=== PATIENT | female | born 1985 | race Caucasian/White ===

== ENCOUNTER 2019-09-02 05:10 | Inpatient (IN) | payer OTHER ==
[2019-09-02] MEDS: ELECTROLYTE-148 SOLN 1,000 ML IV SCH (06:00)
[2019-09-02 06:09] VITALS: BMI 27.7
[2019-09-02] MEDS ORDERED: ELECTROLYTE-148 SOLN 500 ML IV ONE (07:13)
[2019-09-02] MEDS ORDERED: CITRIC ACID/SODIUM CITRATE 30 ML UNIT-DOSE CUP PO ONE (07:15)
[2019-09-02] MEDS ORDERED: morphine SULFATE/PF 0.5 MG/ML (2cc Syringe - QUVA) ONE ×2 (07:18→07:37)
--- NOTE | 2019-09-02 07:18 | HP ---
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: Alzheimer's, CVA, Dementia, Migraine, Multiple Sclerosis, Peripheral Neuropathy, Parkinson's, Seizure, Syncope, TIA, Vertigo, Other Cardiovascular: No: AFIB, Aneurysm, Aortic Insufficiency, Aortic Stenosis, CAD, CHF, Deep Vein Thrombosis, HTN, Hyperlipdemia, ND, Mitral Insufficiency, Mitral Stenosis, Murmur, Pulmonary Hypertension, Other Pulmonary: No: Asthma, Bronchitis, Cancer, COPD, O2 Dependent, Pneumonia, Previously Intubated, Pulmonary Embolus, Pulmonary Fibrosis, Sleep Apnea, Other Gastrointestinal: No: Ascites, Cancer, Constipation, Crohn's Disease, Diverticulitis, Diverticulosis, Esophageal Varices, Gastritis, GERD, GI Bleed, Hemorrhoids, Hiatal Hernia, Inflamatory Bowel Disease, Irritable Bowel Disease, Pancreatitis, Peptic Ulcer Disease, Ulcerative Colitis, Other Hepatobiliary: No: Cirrhosis, Cholelithiasis, Cholecystitis, Choledocholithiasis, Hepatitis A, Hepatitis B, Hepatitis C, Other Renal/: No: Renal Failure, Renal Inusuff, BPH, Cancer, Hematuria, Hemodialysis, Neurogenic Bladder, Renal Calculi, UTI, Other Reproductive: No: Ectopic , Endometriosis, Fibroids, PID, Polycystic Ovary Syndrome, Postmenopausal, Other ...: 3 ...Para: 1 ...Term: 0 ...: 1 ...Spon : 1 ...Induced : 0 ...Living Children: 1 ...Multiple Gestation: 0 ...LMP: 12/11/18 ... Weeks Gestation by Dates: 38.0 ...EDC by Dates: 09/16/19 Heme/Onc: No: Anemia, B12 Deficiency, Bleeding Disorder, Cancer, Current Chemotherapy, Current Radiation Therapy, Hemochromatosis, Hypercoaguable State, Myeloproliferative Synd, Sickle Cell Disease, Sickle Cell Trait, Thrombocytopenia, Other Infectious Disease: No: AIDS, C-Diff, Herpes Zoster, HIV, MRSA, STD's, Tuberculosis, VREF, Other Psych: No: Addictions, Anxiety, Bipolar, Depression, Panic, Psychosis, Schizophrenia, Other Musculoskeletal: No: Bursitis, Chronic low back pain, Hemiparesis, Hemiplegia, Osteoarthritis, Paraplegia, Other Rheumatology: No: Fibromyalgia, Gout, Lupus, Rheumatoid Arthritis, Sarcoidosis, Vasculitis, Other ENT: No: Allergic Rhinitis, Sinusitis, Other Endocrine: No: Aniket's Disease, Fer's Disease, Diabetes Insipidus, Diabetes Mellitus, Hyperparathyroidism, Hyperthyroidism, Hypothyroidism, Osteopenia, SIADH, Other Dermatology: No: Basal Cell, Cellulitis, Eczema, Melanoma, Psoriasis, Squamous Cell, Other - Past Surgical History Past Surgical History: Yes: Hx Myomectomy: No Hx Transabdominal Cerclage: No - Advance Directives Advance Directives: Yes: Living Will - Smoking History Smoking history: Never smoked Have you smoked in the past 12 months: No - Alcohol/Substance Use Hx Alcohol Use: No History of Substance Use: reports: None - Social History Usual Living Arrangement: Yes: With Significant Other Do you think of yourself as: Straight/Heterosexual ADL: Independent History of Recent Travel: No Home Medications - Allergies Allergies/Adverse Reactions: Allergies Allergy/AdvReac Type Severity Reaction Status Date / Time No Known Allergies Allergy Verified 09/02/19 07:13 - Home Medications Home Medications: Ambulatory Orders Aspirin [ASA -] 81 mg PO DAILY 09/02/19 Pnv No.95/Ferrous Fum/Folic AC [ Vitamin Tablet] 1 each PO DAILY 09/02/19 Family Medical History Family History: Denies Review of Systems - Review of Systems Constitutional: reports: No Symptoms Eyes: reports: No Symptoms HENT: reports: No Symptoms Neck: reports: No Symptoms Cardiovascular: reports: No Symptoms Respiratory: reports: No Symptoms Gastrointestinal: reports: No Symptoms Genitourinary: reports: No Symptoms Breasts: reports: No Symptoms Reported Musculoskeletal: reports: No Symptoms Integumentary: reports: No Symptoms Neurological: reports: No Symptoms Endocrine: reports: No Symptoms Hematology/Lymphatic: reports: No Symptoms Psychiatric: reports: No Symptoms Physical Exam - Maternity Vital Signs: Vital Signs Temperature 98.4 F 09/02/19 05:25 Pulse Rate 67 09/02/19 05:25 Respiratory Rate 18 09/02/19 05:25 Blood Pressure 146/93 09/02/19 05:25 O2 Sat by Pulse Oximetry (%) Constitutional: Yes: Well Nourished, No Distress, Calm Eyes: Yes: WNL, Conjunctiva Clear, EOM Intact HENT: Yes: WNL, Atraumatic, Normocephalic Neck: Yes: WNL, Supple, Trachea Midline Cardiovascular: Yes: WNL, Regular Rate and Rhythm Breast(s): Yes: WNL - Abdominal Exam/OB Fundal Height: 38 Number of Fetuses: Single Presentation: Vertex Contractions: Yes Regularity: Irregular Intensity: Mild Monitor Mode: External Heart Rate Location: LLQ Accelerations: Uniform Decelerations: None - Vaginal Exam/OB Vaginal Bleeding: No Speculum Exam: No Dilatation (cm): 1 Effacement (%): 70 Amniotic Membrane Status: Intact Hemorrhage Risk Assessment - Risk Factors Medium Risk Factors: Yes: Prior , uterine surgery,or multiple laparotomies Risk Score: 1 Risk Level: Medium Risk Assessment/Plan for repeat lt c s , pre eclampsia, chronic htn
[2019-09-02] MEDS ORDERED: PROPOFOL 20 ML ONE (07:38)
[2019-09-02] MEDS ORDERED: SUCCINYLCHOLINE CHLORIDE 200 MG/10 ML SYRINGE ONE (07:38)
[2019-09-02] MEDS ORDERED: ePHEDrine SULFATE 50 MG/1 ML AMPULE ONE (07:49)
[2019-09-02] MEDS ORDERED: OXYTOCIN 20 UNITS in 0.9% NS 20 UNIT/1,000 ML INFUS.BAG IV ONE (08:30)
[2019-09-02] MEDS: OXYTOCIN 20 UNITS in 0.9% NS 20 UNIT/1,000 ML INFUS.BAG IV SCH ×3 (08:30→23:29)
[2019-09-02] MEDS ORDERED: ACETAMINOPHEN 325 MG TABLET (FP) PO PRN (08:49)
[2019-09-02] MEDS ORDERED: IBUPROFEN 600 MG TABLET (FP) PO PRN (08:49)
[2019-09-02] MEDS ORDERED: SIMETHICONE 80 MG TAB.CHEW (FP) PO PRN (08:49)
[2019-09-02] MEDS ORDERED: IBUPROFEN 800 MG/8 ML IJ IVPB PRN (08:49)
[2019-09-02] MEDS ORDERED: oxyCODONE HCL 5 MG TABLET PO PRN ×2 (08:49)
[2019-09-02] MEDS ORDERED: SENNOSIDES/DOCUSATE COMBO (SENNA PLUS) TABLET (UD) PO PRN (08:49)
[2019-09-02] MEDS ORDERED: METHYLERGONOVINE MALEATE 0.2 MG/1 ML AMP IM PRN (08:49)
[2019-09-02] MEDS ORDERED: morphine SULFATE/PF 0.5 MG/ML (2cc Syringe - QUVA) EP ONE (08:54)
[2019-09-02] MEDS: PRENATAL VITAMINS W/ FOLIC ACID TABLET (FP) PO SCH (10:57)
[2019-09-02] MEDS: ONDANSETRON 4 MG/2 ML VIAL IVPUSH PRN ×2 (11:16→16:47)
--- NOTE | 2019-09-02 19:37 | OP ---
Operative Note - Note: Operative Date: 09/02/19 Pre-Operative Diagnosis: chronic htn and mild pre eclampsia Operation: repeat lt c s Post-Operative Diagnosis: Same as Pre-op Surgeon: Nakul Silver Photo Printer: Edvin Stafford Anesthesiologist/SUPERVISOR LIQUID YEAST: Marli May MD Anesthesia: Spinal Estimated Blood Loss (mls): 800 (pt on baby aspirin, slightly more vag bleeding, ) Operative Report Dictated: Yes
[2019-09-03 08:25] LABS: BASO % 0.4 % (0-2.0); EOS % 0.6 % (0-4.5); HEMATOCRIT 22.1 % (32.4-45.2); HEMOGLOBIN 7.4 GM/dL (10.7-15.3); LYMPH % 15.3 % (8-40); MCH 31.2 pg (25.7-33.7); MCHC 33.4 g/dl (32.0-36.0); MEAN CELL VOLUME 93.6 fl (80-96); MEAN PLT VOLUME 9.4 fl (7.5-11.1); MONO % 6.7 % (3.8-10.2); PLATELET COUNT 269 K/MM3 (134-434); RBC 2.36 M/mm3 (3.60-5.2); RDW 13.4 % (11.6-15.6); WHITE BLOOD COUNT 14.4 K/mm3 (4.0-10.0)
[2019-09-03] MEDS ORDERED: BISACODYL 10 MG SUPP.RECT RC PRN (08:49)
[2019-09-03] MEDS: PRENATAL VITAMINS W/ FOLIC ACID TABLET (FP) PO SCH (09:34)
--- NOTE | 2019-09-03 09:37 | PN ---
Post Progress Note Post Day: 1 Type of Delivery: Repeat C/S Vital Signs: Vital Signs Temperature 98.5 F 09/03/19 06:00 Pulse Rate 61 09/03/19 02:00 Respiratory Rate 18 09/03/19 06:00 Blood Pressure 117/57 L 09/03/19 06:00 O2 Sat by Pulse Oximetry (%) 98 09/02/19 09:30 Breast Exam: Yes: Soft Uterus: Yes: Fundus Firm, Fundus below umbilicus, Non-tender Incision: Yes: Dressing dry and intact, Sutures intact Abdomen/GI: Yes: Abdomen soft, Abdominal Distention, Passing flatus, Tolerating PO Lochia: Yes: Serosa Lochia, amount: Small Extremities: Yes: Calves non-tender Perineum: Yes: Intact Activity: Ambulating (anemia, but asymptomatic, will observe with iron pills ) - Labs Labs: CBC WBC 14.4 K/mm3 (4.0-10.0) H 09/03/19 07:43 RBC 2.36 M/mm3 (3.60-5.2) L 09/03/19 07:43 Hgb 7.4 GM/dL (10.7-15.3) L 09/03/19 07:43 Hct 22.1 % (32.4-45.2) L D 09/03/19 07:43 MCV 93.6 fl (80-96) 09/03/19 07:43 MCH 31.2 pg (25.7-33.7) 09/03/19 07:43 MCHC 33.4 g/dl (32.0-36.0) 09/03/19 07:43 RDW 13.4 % (11.6-15.6) 09/03/19 07:43 Plt Count 269 K/MM3 (134-434) 09/03/19 07:43 MPV 9.4 fl (7.5-11.1) 09/03/19 07:43 Absolute Neuts (auto) 11.1 K/mm3 (1.5-8.0) H 09/03/19 07:43 Neutrophils % 77.0 % (42.8-82.8) 09/03/19 07:43 Lymphocytes % 15.3 % (8-40) D 09/03/19 07:43 Monocytes % 6.7 % (3.8-10.2) 09/03/19 07:43 Eosinophils % 0.6 % (0-4.5) 09/03/19 07:43 Basophils % 0.4 % (0-2.0) 09/03/19 07:43 Nucleated RBC % 0 % (0-0) 09/03/19 07:43
--- NOTE | 2019-09-03 10:29 | DS ---
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 Vital Signs: Vital Signs Temperature 98.5 F 09/03/19 06:00 Pulse Rate 61 09/03/19 02:00 Respiratory Rate 18 09/03/19 06:00 Blood Pressure 117/57 L 09/03/19 06:00 O2 Sat by Pulse Oximetry (%) 98 09/02/19 09:30 Constitutional: Yes: Well Nourished, No Distress, Calm Eyes: Yes: WNL, Conjunctiva Clear, EOM Intact HENT: Yes: WNL, Atraumatic, Normocephalic Neck: Yes: WNL, Supple, Trachea Midline Cardiovascular: Yes: WNL, Regular Rate and Rhythm Respiratory: Yes: WNL, Regular, CTA Bilaterally Gastrointestinal: Yes: WNL, Normal Bowel Sounds, Soft ...Rectal Exam: Yes: WNL Renal/: Yes: WNL Pelvis: Yes: WNL External Genitalia: Yes: Normal Internal Exam Deferred: Yes Vaginal Exam: Yes: Normal Cervix: Yes: Normal Uterus: Yes: Normal Adnexa: Normal: Bilateral ....Post : Yes: Uterus firm, Uterus non-tender, Slight lochia rubra Breast(s): Yes: WNL Musculoskeletal: Yes: WNL Extremities: Yes: WNL Edema: No Integumentary: Yes: WNL Wound/Incision: Yes: Clean/Dry, Well Approximated Neurological: Yes: WNL, Alert, Oriented ...Motor Strength: WNL Psychiatric: Yes: WNL, Alert, Oriented Labs: CBC, BMP 09/03/19 07:43 Delivery - Delivery Section: Repeat Type of Anesthesia: Spinal Episiotomy/Laceration: None EBL (cc): 800 Delivery, Single - Stages of Labor Date of Delivery: 09/02/19 Time of Delivery: 07:54 Time Placenta Delivered: 07:55 - Condition of Infant Senior Estimator/Stained Glass Glazier Present: No Infant Gender: Female Weight: 3.289 kg Position: Left, OA Total Hours ROM (Hrs/Mins): 2MIN - 1 Minute Total Score: 9 5 Minutes Total Score: 9 - [place] Feeding Plan Initial Plan: Exclusive throughout hospitalization Discharge Summary Problems reviewed: Yes Reason For Visit: SCHEDULED Procedures: Principal: repeat lt c s Other Procedures: none Hospital Course: uneventful Health Concerns: none Plan of Treatment: oob as much as possible Condition: Good - Instructions Diet, Activity, Other Instructions: Physical activity Resume your normal everyday activity as tolerated no heavy lifting or exercise until seen by your surgeon. You may walk unlimited harriett of and climb stairs. You may resume driving the car when you feel safe and comfortable behind the wheel. No sexual activity as instructed. Wound care If you have a bandage, leave it on, and keep dry for 48-72 hours. After that time discard the outer bandage. If they are tapes on the skin under the out of bandage leave them in place. They will peel off in the next 7 to 10 days. Do Not Peel them off. You may shower the day after surgery. If there are tapes present on the skin, you may shower over them. Diet There are no dietary restrictions. Eat healthy, high-fiber foods. Drink 6 to 8 glasses of liquid each day. This will assist in keeping your bowels are regular. Pain management You may take Tylenol or acetaminophen or Ibuprofen (for example, Motrin, Advil etc.) from my pain prescription medication is ordered should be taken as prescribed for moderate to severe pain. Call MD for any of the following: call dr wilkins for 1 to 2 weeks appointment Severe pain not relieved by medication Fever of 101 or higher Excessive bleeding or drainage on dressing Inability to urinate Referrals: Amarjit Fermin [Primary Care Provider] - Disposition: HOME - Home Medications Comprehensive Discharge Medication List: Ambulatory Orders Aspirin [ASA -] 81 mg PO DAILY 09/02/19 Pnv No.95/Ferrous Fum/Folic AC [ Vitamin Tablet] 1 each PO DAILY 09/02/19 Prescription Drug Monitoring Program (I-STOP) results: I-STOP reviewed and no issues identified
--- NOTE | 2019-09-03 11:12 | PN ---
Progress Note (short form) - Note Progress Note: POD #1 c/s under spinal with duramorph. Doing well, no issues, all questions answered.
--- NOTE | 2019-09-03 11:48 | OP ---
DATE OF OPERATION: 09/02/2019 PREOPERATIVE DIAGNOSIS: Chronic high blood pressure at 38 weeks and mild preeclampsia. POSTOPERATIVE DIAGNOSIS: Chronic high blood pressure at 38 weeks and mild preeclampsia. PROCEDURE: Repeat low transverse section. SURGEON: Nakul Silver MD WEIGHT LOSS COUNSELOR: AGUS Mark ANESTHESIA: Spinal. ANESTHESIOLOGIST: JEFFY Barron INDICATION: This is a 34-year-old female patient, chronic high blood pressure and the patient has been advised to be on labetalol. Patient taking it sometimes and patient has some home remedy, taking lemon tea to bring the blood pressure down. Patient had a previous history of last baby at 35 weeks same story with chronic high blood pressure and severe preeclampsia with delivery at 35 weeks, and patient was placed on baby aspirin throughout this , and blood pressure has been creeping up since about 31 weeks, 150-range, 140-range. Patient was placed on blood pressure medication again and the patient has been advised to watch out for preeclampsia. 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 So, patient has been monitored with mild preeclampsia by herself and finally made it to 37-1/2 to 38 weeks and patient taken to OR for repeat low transverse section. PROCEDURE: So, patient was placed on the operating table in the supine position after spinal anesthesia was obtained and the first spinal failed. Patient felt the pain, so redo the second spinal and the spinal was done again. Patient was comfortable now. So, patient was placed on the operating table in the supine position and patient's abdomen and pelvis were prepped and draped in the usual sterile manner. Following the same Pfannenstiel incision, incision was made through the skin, subcutaneous tissue until the fascia was nicked in the midline. The fascia was extended bilaterally. Intraperitoneal cavity was entered. Bladder flap was not created. Low transverse segment was entered. Baby delivered from the LOP position. Baby was handed over to carton liner after umbilical cord doubly clamped and cut. Placenta was removed. Uterus closed in single layer, first layer interlocking Vicryl sutures. Good hemostasis. Both gutters cleaned. Both ovaries, fallopian tubes, uterus were within normal limits. Patient tolerated the procedure well, draining clear urine. Blood loss about 800 mL. Patient taking baby aspirin, so a little bit more bleeding. Other than that, uterus was closed. Peritoneum was closed. Fascia was closed. Skin was closed. Transferred to recovery room in stable condition. MD KIRSTIN MARINO/[id number]
--- NOTE | 2019-09-03 16:13 | PATH ---
Surgical Pathology Report Patient Name: BRITT LEONARDO [facility]. Rec. #: [id number] /Age/Gender: 1985 (Age: 34) / F Account: [id number] Location: [facility] OBS/FIELD MAP EDITOR Taken: 09/02/2019 Received: 09/02/2019 Reported: 09/03/2019 Physicians: Nakul Silver MD Specimen(s) Received PLACENTA Clinical History , 38 weeks' previous , history of severe preeclampsia, chronic hypertension Final Diagnosis PLACENTA, SECTION: 617 G THIRD TRIMESTER PLACENTA WITH TRIVASCULAR UMBILICAL CORD AND UNREMARKABLE PLACENTAL MEMBRANES. Electronically Signed Christine Chapman M.D. Gross Description The specimen is received fresh labeled placenta and is a 617 gram, 18.0 x 15.0 x 3.3 cm. placenta with attached membranes and umbilical cord. The attached membranes are tejada, thick, cloudy and insert marginally. The umbilical cord measures 32 cm. in length and averages 0.9 cm. in diameter. The cord inserts eccentrically, 4.5 cm. to the nearest margin. No true knots or strictures are identified. Cut surface of the umbilical cord reveals 3 vessels. The surface is corona-blue with minimal fibrin deposition and appropriate caliber vessels. The maternal surface is red-brown with focal defects. Sectioning reveals red-brown, spongy parenchyma. No lesions are identified. Flight Radio Officer sections are submitted in three cassettes as follows: 1- membrane rolls and umbilical cord; 2-3- full thickness sections of placenta. /09/02/2019 saudi/09/02/2019
[2019-09-03] MEDS: FERROUS SO4 325 MG TABLET (FP) PO SCH (17:54)
[2019-09-03] MEDS: ELECTROLYTE-148 SOLN 1,000 ML IV SCH (20:18)
[2019-09-03] MEDS: OXYTOCIN 20 UNITS in 0.9% NS 20 UNIT/1,000 ML INFUS.BAG IV SCH (20:18)
--- NOTE | 2019-09-04 08:06 | PN ---
Post Progress Note Post Day: 2 Type of Delivery: Repeat C/S Vital Signs: Vital Signs Temperature 98 F 09/03/19 22:00 Pulse Rate 60 09/03/19 22:00 Respiratory Rate 20 09/03/19 22:00 Blood Pressure 130/82 09/03/19 22:00 O2 Sat by Pulse Oximetry (%) 98 09/02/19 09:30 Breast Exam: Yes: Soft Uterus: Yes: Fundus Firm, Fundus below umbilicus, Non-tender Incision: Yes: Dressing dry and intact, Sutures intact Abdomen/GI: Yes: Abdomen soft, Passing flatus, Tolerating PO Lochia: Yes: Serosa Lochia, amount: Small Extremities: Yes: Calves non-tender Perineum: Yes: Intact Activity: Ambulating (dc pt home today) - Labs Labs: CBC WBC 14.4 K/mm3 (4.0-10.0) H 09/03/19 07:43 RBC 2.36 M/mm3 (3.60-5.2) L 09/03/19 07:43 Hgb 7.4 GM/dL (10.7-15.3) L 09/03/19 07:43 Hct 22.1 % (32.4-45.2) L D 09/03/19 07:43 MCV 93.6 fl (80-96) 09/03/19 07:43 MCH 31.2 pg (25.7-33.7) 09/03/19 07:43 MCHC 33.4 g/dl (32.0-36.0) 09/03/19 07:43 RDW 13.4 % (11.6-15.6) 09/03/19 07:43 Plt Count 269 K/MM3 (134-434) 09/03/19 07:43 MPV 9.4 fl (7.5-11.1) 09/03/19 07:43 Absolute Neuts (auto) 11.1 K/mm3 (1.5-8.0) H 09/03/19 07:43 Neutrophils % 77.0 % (42.8-82.8) 09/03/19 07:43 Lymphocytes % 15.3 % (8-40) D 09/03/19 07:43 Monocytes % 6.7 % (3.8-10.2) 09/03/19 07:43 Eosinophils % 0.6 % (0-4.5) 09/03/19 07:43 Basophils % 0.4 % (0-2.0) 09/03/19 07:43 Nucleated RBC % 0 % (0-0) 09/03/19 07:43
[2019-09-04] MEDS: FERROUS SO4 325 MG TABLET (FP) PO SCH (11:04)
[2019-09-04] MEDS: PRENATAL VITAMINS W/ FOLIC ACID TABLET (FP) PO SCH (11:04)
[2019-09-04 13:08] VITALS: BP 135/85; PULSE 62; TEMP 98.4
== END 2019-09-04 13:15 | disposition home or self-care (01) | DRG 540 ==
LOC: JLDR 05:10 → J3W 10:30
PROVIDERS: ADMIT Obstetrics & Gynecology; ATTEND Obstetrics & Gynecology
PROC: 10D00Z1 Extraction of Products of Conception, Low, Open Approach (ICD-10-PCS; principal; 2019-09-02)
DX: O11.4 Pre-existing hypertension with pre-eclampsia, complicating childbirth (principal); O99.02 Anemia complicating childbirth; Z3A.38 38 weeks gestation of pregnancy; Z37.0 Single live birth
CPT/HCPCS: 36415; 85025; 88307-TC

== ENCOUNTER 2021-12-01 05:56 | Inpatient (IN) | payer OTHER ==
[2021-12-01] MEDS ORDERED: CITRIC ACID/SODIUM CITRATE 30 ML UNIT-DOSE CUP PO ONE ×2 (06:15→08:14)
[2021-12-01] MEDS ORDERED: ELECTROLYTE-148 SOLN 500 ML IV ONE ×2 (06:15→08:14)
[2021-12-01] MEDS ORDERED: ELECTROLYTE-148 SOLN 1,000 ML IV SCH (06:45)
[2021-12-01 06:58] VITALS: BMI 28.5
[2021-12-01] MEDS: ELECTROLYTE-148 SOLN 1,000 ML IV SCH (08:00)
[2021-12-01 08:10] LABS: HIV INTERPRETATION NEGATIVE (NEGATIVE)
[2021-12-01] MEDS ORDERED: morphine SULFATE/PF 1 MG/2 ML (2cc Syringe - QUVA) ONE (08:15)
[2021-12-01] MEDS ORDERED: morphine SULFATE/PF 1 MG/2 ML (2cc Syringe - QUVA) IT ONE (08:26)
[2021-12-01] MEDS ORDERED: METOCLOPRAMIDE HCL INJECTION 10 MG/2 ML VIAL ONE (08:31)
[2021-12-01] MEDS ORDERED: OXYTOCIN 10 UNITS/ML VIAL ONE (08:31)
[2021-12-01] MEDS ORDERED: ONDANSETRON 4 MG/2 ML VIAL ONE (08:31)
[2021-12-01] MEDS ORDERED: KETOROLAC TROMETHAMINE 30 MG/1 ML VIAL ONE (09:23)
[2021-12-01] MEDS ORDERED: OXYTOCIN 20 UNITS in 0.9% NS 20 UNIT/1,000 ML INFUS.BAG IV ONE (09:44)
[2021-12-01] MEDS: OXYTOCIN 20 UNITS in 0.9% NS 20 UNIT/1,000 ML INFUS.BAG IV SCH ×2 (09:45→16:00)
[2021-12-01] MEDS ORDERED: SENNOSIDES/DOCUSATE COMBO (SENNA PLUS) TABLET (UD) PO PRN (09:47)
[2021-12-01] MEDS ORDERED: ACETAMINOPHEN 325 MG TABLET (FP) PO PRN (09:47)
[2021-12-01] MEDS ORDERED: METHYLERGONOVINE MALEATE 0.2 MG/1 ML AMP IM PRN (09:47)
[2021-12-01] MEDS ORDERED: IBUPROFEN 800 MG/8 ML IJ IVPB PRN (09:47)
[2021-12-01] MEDS ORDERED: ONDANSETRON 4 MG/2 ML VIAL IVPUSH PRN (10:19)
[2021-12-01] MEDS: PRENATAL VITAMINS W/ FOLIC ACID TABLET (FP) PO SCH (14:52)
[2021-12-01] MEDS ORDERED: METHYLERGONOVINE MALEATE 0.2 MG TABLET (FP) PO PRN (18:00)
[2021-12-01] MEDS ORDERED: oxyCODONE HCL 5 MG TABLET PO PRN ×2 (21:47)
[2021-12-02] MEDS: SIMETHICONE 80 MG TAB.CHEW (FP) PO PRN ×2 (06:22→17:21)
[2021-12-02 08:47] LABS: BASO % 0.3 % (0-2.0); EOS % 2.4 % (0-4.5); HEMOGLOBIN 8.1 GM/dL (10.7-15.3); LYMPH % 16.2 % (8-40); MCHC 33.6 g/dl (32.0-36.0); MEAN CELL VOLUME 89.1 fl (80-96); MEAN PLT VOLUME 8.8 fl (7.5-11.1); MONO % 8.1 % (3.8-10.2); PLATELET COUNT 244 10^3/uL (134-434); RDW 14.8 % (11.6-15.6)
[2021-12-02] MEDS ORDERED: BISACODYL 10 MG SUPP.RECT RC PRN (09:47)
[2021-12-02] MEDS: PRENATAL VITAMINS W/ FOLIC ACID TABLET (FP) PO SCH (09:55)
[2021-12-02] MEDS ORDERED: DIPHTH,PERTUSS(ACELL),TET 0.5 ML DISP.SYRIN IM ONE (10:00)
[2021-12-02] MEDS: FERROUS SO4 325 MG TABLET (FP) PO SCH ×3 (10:39→21:47)
[2021-12-02] MEDS: OXYTOCIN 20 UNITS in 0.9% NS 20 UNIT/1,000 ML INFUS.BAG IV SCH (10:44)
[2021-12-02] MEDS: ELECTROLYTE-148 SOLN 1,000 ML IV SCH (10:45)
[2021-12-02] MEDS: IBUPROFEN 600 MG TABLET (FP) PO PRN (17:21)
[2021-12-03] MEDS: IBUPROFEN 600 MG TABLET (FP) PO PRN (08:32)
[2021-12-03] MEDS: FERROUS SO4 325 MG TABLET (FP) PO SCH (09:28)
[2021-12-03] MEDS: PRENATAL VITAMINS W/ FOLIC ACID TABLET (FP) PO SCH (09:28)
[2021-12-03] MEDS: SIMETHICONE 80 MG TAB.CHEW (FP) PO PRN (09:29)
[2021-12-03 11:39] VITALS: BP 128/77; PULSE 78; RESP 16; TEMP 98.3
== END 2021-12-03 15:45 | disposition home or self-care (01) | DRG 540 ==
LOC: JLDR 05:56 → J3W 13:30
PROVIDERS: ADMIT Obstetrics & Gynecology; ATTEND Obstetrics & Gynecology
PROC: 10D00Z1 Extraction of Products of Conception, Low, Open Approach (ICD-10-PCS; principal; 2021-12-01)
DX: O34.211 Maternal care for low transverse scar from previous cesarean delivery (principal); O10.92 Unspecified pre-existing hypertension complicating childbirth; O23.02 Infections of kidney in pregnancy, second trimester; Z3A.38 38 weeks gestation of pregnancy; Z37.0 Single live birth
CPT/HCPCS: 36415; 85025; 87389; 88307-TC; 90715